=== PATIENT | male | born 1965 | race Two or more races ===

== ENCOUNTER → 2025-08-15 | Outpatient (CLI) | payer MEDICAID, SELFPAY ==
--- NOTE | 2025-08-15 10:25 | XR_ITS ---
Examination: Foot, right, 3 views Technique: AP, oblique, lateral views foot, 3 views Date and time of exam: July, 1036 hours INDICATIONS: Right foot pain beginning 2 weeks ago. FINDINGS: Severe osteopenia Moderate osteoarthritis first metatarsophalangeal joint Mild bunion deformity Soft tissue vascular calcification No evidence of arthritis Ossification of the plantar fascia 6 mm posterior bony calcaneal spur IMPRESSION: Mild bunion deformity Moderate osteoarthritis first metatarsophalangeal joint
== END | disposition home or self-care (01) ==
PROVIDERS: PCP Physician Assistant; Referring Provider Physician Assistant; Visit Provider Physician Assistant
DX: M21.611 Bunion of right foot (principal); M19.071 Primary osteoarthritis, right ankle and foot
CPT/HCPCS: 73630